=== PATIENT | female | born 1965 | race Caucasian/White ===

== ENCOUNTER → 2017-01-24 10:48 | Outpatient (CLI) | payer OTHER ==
[~2017-01-24 10:48] MED LIST: ADVAIR 500/501 DISK INH; ARAVA10 MG PO; ASPIRIN81 MG PO; BACTRIM DS TABL1 TAB PO; BACTROBAN CREAM15 GM TOPICAL; CATAPRES0.1 MG PO; CELEXA40 MG PO; CLEOCIN HCL150 MG PO; CYCLOBENZAPRINE10 MG PO; DOXYCYCLINE HY100 M2 PO; HYDROCODON-ACE1 EAC7 PO; NORCO 7.5/325 T1 TA1 PO; VALIUM5 MG PO
== END | disposition home or self-care (01) ==
LOC: D.RT 10:48
DX: Z02.71 Encounter for disability determination (principal)